=== PATIENT | female | born 1960 | race Caucasian/White ===

== ENCOUNTER 2022-12-22 19:42 | Emergency (ER) | payer MEDICARE, OTHER, SELFPAY ==
[2022-12-22 19:43] VITALS: BP 138/81; PULSE 82; RESP 16; TEMP 37.1; O2SAT 94; BMI 29.9
--- NOTE | 2022-12-22 20:28 | PC.NURSE ---
Called and spoke with Staff at [place]
--- NOTE | 2022-12-22 20:28 | PC.NURSE ---
Dr. Ledesma at
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
--- NOTE | 2022-12-22 21:09 | PC.NURSE ---
Dr. Ledesma and KRISTIE Barth at
[2022-12-22 21:20] LABS: Microscopic, Urine URINE MICROSCOPIC (MICROSCOPIC)
[2022-12-22 21:23] LABS: Appearance,Urine CLEAR (Clear); Bilirubin,Urine Negative (Negative); Blood, Urine Negative (Negative); Color,Urine YELLOW (Yellow); Glucose,Urine (UA) Negative (Negative); Ketones,Urine Negative (Negative); Leukocyte Esterase,Urine TRACE (Negative); Nitrate,Urine Negative (Negative); Protein,Urine 1+ (Negative); Specific Gravity, Urine <= 1.005 (1.005-1.030); Urobilinogen,Urine 0.2 EU/dl (0.2)
[2022-12-22 21:41] LABS: WBC,Urine Occasional #/hpf (0-3)
--- NOTE | 2022-12-22 21:46 | PC.NURSE ---
Sat with patient and talked with her for a while.
--- NOTE | 2022-12-22 21:47 | PC.NURSE ---
Called [facility] and advised them we would be sending her back and that they needed to contact Dr. Ledesma tomorrow to establish a further POC with patient.
--- NOTE | 2022-12-22 22:17 | PC.NURSE ---
PD here to take pt back to [facility].
[2022-12-22 22:18] VITALS: BP 132/70; PULSE 74; RESP 16; TEMP 36.8; O2SAT 98
== END 2022-12-22 22:23 | disposition home or self-care (01) ==
PROVIDERS: Emergency Provider Emergency Medicine
DX: F20.9 Schizophrenia, unspecified (principal); F17.200 Nicotine dependence, unspecified, uncomplicated
CPT/HCPCS: 81001; 99283; 99284